=== PATIENT | female | born 1975 | race Caucasian/White ===

== ENCOUNTER 2018-05-21 11:50 | Emergency (ER) | payer OTHER ==
[2018-05-21 13:08] VITALS: BP 148/98
--- NOTE | 2018-05-21 13:32 | UC ---
Skin Complaint HPI - HPI Summary HPI Summary: Pt c/o insect bite to left cheek that is not getting better. Feels firm and tender and mild erythema. - History of Current Complaint Chief Complaint: UCSkin Time Seen by Provider: 05/21/18 13:16 Stated Complaint: INSECT BITE ON FACE Hx Obtained From: Patient Hx Last Menstrual Period: 05/24/2014 ?: No Onset/Duration: Gradual Onset, Lasting Days, Still Present, Worse Since - onset Skin Exposure Onset/Duration: Days Ago Timing: Constant Onset Severity: Mild Current Severity: Mild Pain Intensity: 1 Location: Discrete, Face Character: Redness, Raised Aggravating Factor(s): Touch Alleviating Factor(s): Nothing Associated Signs & Symptoms: Positive: Tenderness Related History: Insect Bite/Sting - Allergy/Home Medications Allergies/Adverse Reactions: Allergies Allergy/AdvReac Type Severity Reaction Status Date / Time No Known Allergies Allergy Verified 05/21/18 13:02 Home Medications: Home Medications Aspirin TAB* [Aspirin 325 MG TAB*] 325 mg DAILY 05/21/18 [History Confirmed ] Atorvastatin* [Lipitor 20 MG*] 20 mg DAILY 05/21/18 [History Confirmed 05/21/18] Omeprazole CAP* [Prilosec CAP* 20 MG] 40 mg PO TID 05/21/18 [History Confirmed 05/21/18] SUMAtriptan TAB* [Imitrex TAB*] 1 tab TID PRN 05/21/18 [History Confirmed ] traZODone TAB* [Desyrel TAB*] 100 mg BEDTIME 05/21/18 [History Confirmed ] Review of Systems Constitutional: Negative Skin: Other - insect bite Eyes: Negative ENT: Negative Respiratory: Negative Cardiovascular: Negative Gastrointestinal: Negative Genitourinary: Negative Motor: Negative Neurovascular: Negative Musculoskeletal: Negative Neurological: Negative Psychological: Negative Is Patient Immunocompromised?: No All Other Systems Reviewed And Are Negative: Yes PMH/Surg Hx/FS Hx/Imm Hx Previously Healthy: Yes - Surgical History Surgical History: Yes Surgery Procedure, Year, and Place: tonsillectomy - Family History Known Family History: Positive: Cardiac Disease - Social History Occupation: Employed Full-time Lives: With Family Alcohol Use: Occasionally Substance Use Type: None Smoking Status (MU): Current Every Day Smoker Type: Cigarettes Amount Used/How Often: 1 PPD Have You Smoked in the Last Year: Yes Household Exposure Type: Cigarettes Physical Exam Triage Information Reviewed: Yes Vital Signs: Initial Vital Signs Temp 98.3 F 05/21/18 13:03 Pulse 97 05/21/18 13:03 Resp 16 05/21/18 13:03 BP 148/98 05/21/18 13:03 Pulse Ox 100 05/21/18 13:03 Vital Signs Reviewed: Yes Eye Exam: Normal ENT: Positive: Normal ENT inspection Dental Exam: Normal Neck exam: Normal Respiratory: Positive: No respiratory distress Musculoskeletal Exam: Normal Neurological Exam: Normal Psychological Exam: Normal Skin Exam: Other - left side facial cheek has dried scab in center, palpable firm, tender mass, pt declined incision and drainage Course/Dx - Differential Diagnoses - Skin Complaint Differential Diagnoses: Abscess, MRSA - Diagnoses Provider Diagnoses: infected wound left side face Discharge - Sign-Out/Discharge Documenting (check all that apply): Patient Departure - Discharge Plan Condition: Stable Disposition: HOME Prescriptions: DOXYcycline CAP(*) [DOXYcycline 100MG CAP(*)] 100 mg PO Q12H #20 cap Patient Education Materials: Wound Infection (ED) Referrals: Jagdeep Crawford MD [Primary Care Provider] - If Needed - Billing Disposition and Condition Condition: STABLE Disposition: Home
== END 2018-05-21 13:41 | disposition home or self-care (01) ==
LOC: UCCORT 11:50
DX: S00.86XA Insect bite (nonvenomous) of other part of head, initial encounter (principal); W57.XXXA Bitten or stung by nonvenomous insect and other nonvenomous arthropods, initial encounter; Y92.9 Unspecified place or not applicable; Z79.82 Long term (current) use of aspirin
CPT/HCPCS: 99202; G0463

== ENCOUNTER 2019-09-07 09:54 | Emergency (ER) | payer OTHER ==
[2019-09-07 10:25] VITALS: BP 136/80
--- NOTE | 2019-09-07 11:08 | UC ---
Throat Pain/Nasal Sachin HPI - HPI Summary HPI Summary: 44-year-old female presents with 3 day history of sore throat. States has some occasional dry nonproductive cough that tends to be worse at night when she is lying down. Denies fever, chills, nasal congestion, dysphagia, chest pain, shortness of breath. - History of Current Complaint Chief Complaint: UCRespiratory Stated Complaint: THROAT COMPLAINT,CHEST CONGESTION Time Seen by Provider: 09/07/19 10:51 Hx Obtained From: Patient Hx Last Menstrual Period: 08/26/19 Pain Intensity: 6 - Allergies/Home Medications Allergies/Adverse Reactions: Allergies Allergy/AdvReac Type Severity Reaction Status Date / Time No Known Allergies Allergy Verified 09/07/19 10:17 Home Medications: Home Medications Cholecalciferol (Vitamin D3) [Vitamin D3] 1,000 cap PO DAILY 09/07/19 [History Confirmed 09/07/19] PMH/Surg Hx/FS Hx/Imm Hx Previously Healthy: Yes Endocrine History: Dyslipidemia GI/ History: Gastroesophageal Reflux Neurological History: Migraine - Surgical History Surgical History: Yes Surgery Procedure, Year, and Place: tonsillectomy - Family History Known Family History: Positive: Cardiac Disease - Social History Occupation: Employed Full-time Lives: With Family Alcohol Use: Occasionally Substance Use Type: None Smoking Status (MU): Light Every Day Tobacco Smoker Type: Cigarettes Amount Used/How Often: 1 PPD Have You Smoked in the Last Year: Yes Household Exposure Type: Cigarettes Review of Systems All Other Systems Reviewed And Are Negative: Yes Constitutional: Negative: Fever, Chills Skin: Negative: Rash Eyes: Negative: Drainage, Eye Redness ENT: Positive: Sore Throat. Negative: Ear Ache, Nasal Discharge, Sinus Congestion, Sinus Pain/Tenderness Respiratory: Negative: Shortness Of Breath, Cough Cardiovascular: Negative: Palpitations, Chest Pain Gastrointestinal: Negative: Abdominal Pain, Vomiting, Nausea Genitourinary: Positive: Negative Musculoskeletal: Positive: Negative Neurological: Positive: Negative Is Patient Immunocompromised?: No Physical Exam - Summary Physical Exam Summary: GENERAL APPEARANCE: Alert and cooperative, and appears to be in no acute distress. EYES: Conjunctiva clear. No drainage. EARS: External auditory canals and tympanic membranes clear, hearing grossly intact. NOSE: No nasal discharge. THROAT: Pharyngeal erythema. Tonsils surgically absent. Uvula midline. NECK: Neck supple, non-tender without lymphadenopathy. CARDIAC: Normal S1 and S2. No S3, S4 or murmurs. Rhythm is regular. There is no peripheral edema, cyanosis or pallor. Extremities are warm and well perfused. Capillary refill is less than 2 seconds. Peripheral pulses intact. LUNGS: Clear to auscultation without rales, rhonchi, wheezing or diminished breath sounds. ABDOMEN: Positive bowel sounds. Soft, nondistended, nontender. No guarding or rebound. No masses or hepatosplenomegally. MUSKULOSKELETAL: ROM intact to all extremities. No joint erythema or tenderness. Normal muscular development. Normal gait. SKIN: Skin normal color, texture and turgor with no lesions or eruptions. Triage Information Reviewed: Yes Vital Signs: Initial Vital Signs Temp 97.9 F 09/07/19 10:20 Pulse 79 09/07/19 10:20 Resp 20 09/07/19 10:20 BP 136/80 09/07/19 10:20 Pulse Ox 100 09/07/19 10:20 Vital Signs Reviewed: Yes Throat Pain/Nasal Course/Dx - Course Course Of Treatment: 44-year-old female presents with 3 day history of sore throat. States has some occasional dry nonproductive cough that tends to be worse at night when she is lying down. Reports had cold-like symptoms last week that did resolve 2 days ago. Denies fever, chills, nasal congestion, dysphagia, chest pain, shortness of breath. Afebrile. Vital signs stable. Patient had pharyngeal erythema, surgically absent tonsils, no cervical lymphadenopathy, clear bilateral breath sounds, and otherwise unremarkable exam. Rapid strep test was negative. Reviewed results with the patient. Recommending symptomatic treatment for a viral pharyngitis. She is to follow-up with her primary care provider in 3-5 days if symptoms are not improving. Anticipatory guidance warning symptoms were reviewed with the patient. Verbalized understanding and agrees with plan of care. - Differential Dx/Diagnosis Differential Diagnosis/HQI/PQRI: Otitis Media, Pharyngitis, Sinusitis, Tonsillitis, URI Provider Diagnosis: Acute viral pharyngitis Discharge ED - Sign-Out/Discharge Documenting (check all that apply): Patient Departure All imaging exams completed and their final reports reviewed: No Studies - Discharge Plan Condition: Stable Disposition: HOME Patient Education Materials: Pharyngitis (ED) Referrals: Jagdeep Crawford MD [Primary Care Provider] - 3 Days Additional Instructions: Your rapid strep test in the clinic today was negative. Your symptoms are likely from a viral infection. Viral infections do not respond to antibiotics and are limited to the treatment of symptoms. Viral infections typically run their course in 7-10 days. Drink plenty of fluids to avoid dehydration especially if you are running any fever. Use salt water gargles several times a day. Take over the counter acetaminophen (Tylenol) or ibuprofen (Advil, Motrin) according to directions as needed for pain or fever. You may also use Chloraseptic spray or Cepacol lonzenges according to directions which contain a numbing medication and can provide some temporary relief from your sore throat. Return here or follow up with your primary care provider in 3-5 days if symptoms persist. Seek immediate medical attention in the emergency room if you have fever greater than 100.5 F despite taking acetaminophen or ibuprofen, are unable to swallow or develop drooling, are unable to open your mouth fully, are unable to eat or drink, have pain that is not relieved with over the counter pain medication, or have any difficulty breathing. - Billing Disposition and Condition Condition: STABLE Disposition: Home
== END 2019-09-07 11:21 | disposition home or self-care (01) ==
LOC: UCCORT 09:54
DX: J02.9 Acute pharyngitis, unspecified (principal); F17.210 Nicotine dependence, cigarettes, uncomplicated; Z88.8 Allergy status to other drugs, medicaments and biological substances
CPT/HCPCS: 87651; 99211; G0463